=== PATIENT | female | born 1975 | race Caucasian/White ===

== ENCOUNTER → 2016-11-21 21:49 | Emergency (ER) | payer SELFPAY ==
[~2016-11-21 21:49] MED LIST: ACET325T33 PO; CYCL-319 PO; NAPR-260 PO; ZOF8 PO
== END | disposition left against medical advice (07) ==
LOC: E/R 21:49
DX: Z53.21 Procedure and treatment not carried out due to patient leaving prior to being seen by health care provider (principal)

== ENCOUNTER 2016-12-12 15:36 | Emergency (ER) | payer OTHER ==
[~2016-12-12] VITALS: Wt 70.0 kg
[2016-12-12] MEDS ORDERED: ERYTOPOI LEFT EYE (16:01)
[2016-12-12] MEDS ORDERED: BEN25 PO (16:01)
--- NOTE | 2016-12-12 17:20 | ERD ---
ER Documentation Chief Complaint Date/Time DATE: 12/12/16 TIME: 17:15 Chief Complaint LEFT EYELID PAIN AND DRAINAGE SINCE THIS MORNING. HPI 40-year-old female with a past medical history of fatty liver presents to the ED complaining of left eye drainage that started earlier this morning. States that she felt a bump on the left upper eyelid. Reports that it is itchy and red. Reports that she had greenish discharge. States that it is itchy. Denies any photophobia or phonophobia. Denies wearing any glasses or contacts. Denies any eye pain, blurred vision, diplopia, abdominal pain, nausea, vomiting, chest pain, shortness of breath, weakness. ROS All systems reviewed and are negative except as per history of present illness. Medications Home Meds Active Scripts Erythromycin* (Erythromycin* Ophthalmic) 1 Applic Oint, 1 APPLIC LEFT EYE QHS for 7 Days, EA Prov:IAN HERBERT PA-C 12/12/16 Diphenhydramine Hcl* (Benadryl*) 25 Mg Cap, 25 MG PO QHS Y for ITCHING/RASH, # 30 TAB Prov:IAN HERBERT PA-C 12/12/16 Ondansetron Hcl* (Zofran* ODT) 8 mg -ODT Tab.disper, 8 MG PO Q6 Y for NAUSEA AND /OR VOMITING, #10 TAB Prov:AISHA COREA NP 12/05/15 Acetaminophen* (Tylenol*) 325 Mg Tablet, 2 TAB PO Q6 Y for PAIN AND OR ELEVATED TEMP, #20 TAB Prov:AISHA COREA NP 12/05/15 Cyclobenzaprine Hcl* (Cyclobenzaprine Hcl*) 10 Mg Tablet, 10 MG PO TID, #15 TAB Prov:ISABELLA GOOD DO 11/15/15 Naproxen* (Naprosyn*) 500 Mg Tablet, 500 MG PO BID Y for PAIN AND/OR INFLAMMATION, #30 TAB Prov:ISABELLA GOOD DO 11/15/15 Allergies Allergies: Coded Allergies: No Known Allergy (Unverified , 11/15/15) PMhx/Soc History of Surgery: No Anesthesia Reaction: No Hx Neurological Disorder: No Hx Respiratory Disorders: No Hx Cardiac Disorders: No Hx Psychiatric Problems: No Hx Alcohol Use: Yes (EVERYDAY FR XMAS TO 11/11/15) Hx Substance Use: No Hx Tobacco Use: No Physical Exam Vitals Vital Signs Date Time Temp Pulse Resp B/P Pulse Ox O2 Delivery O2 Flow Rate FiO2 12/12/16 15:50 98.8 98 20 120/77 100 Physical Exam Const: [id number]-[id number], well-nourished. In no acute distress. Head: Atraumatic, normocephalic Eyes: Normal Conjunctiva without injection. No purulent discharge. PERRLA. EOMI. Erythematous 1 mm 1 mm circular flesh-like bump noted on the upper right eyelid with slight yellowish green discharge at the inner canthus. No fluctuance or induration. No surrounding edema. ENT: Normal external ear. Ear canal without erythema. Tympanic membrane pearly roy without effusion or bulging. Nasal canal clear with normal turbinates. Moist oropharynx without tonsillar exudates. Non-erythematous pharynx. Uvula midline. No drooling. No trismus. Neck: No cervical midline tenderness. Full range of motion. No meningismus. No cervical lymphadenopathy. No JVD. Resp: Clear to auscultation bilaterally. No wheezing, rhonchi, rales, or crackles. No accessory muscle use. No retractions. Cardio: Regular rate and rhythm. No murmurs, rubs or gallops. Abd: Soft, non tender, non distended. Normal bowel sounds. No palpable masses. No rebound tenderness. No guarding. Negative McBurney's Point. Negative Maurice's Sign. Skin: Normal skin turgor. No petechiae or rashes Back: No midline tenderness. No CVA tenderness. Ext: No cyanosis, or edema. Distal pulses intact bilaterally. Neur: Awake and alert. Normal gait. Normal coordination. Cranial Nerves II- VII intact. Normal finger to nose. Muscle strength 5/5. Sensation intact. Psych: Normal Mood and Affect Procedures/MDM 40-year-old female with no significant past medical history presents the ED complaining of a left eye bump with greenish drainage that occurred this morning. Patient is afebrile and nontoxic-appearing. Patient has normal vital signs. Patient's physical exam is likely consistent with a stye. Patient's ocular symptoms have stabilized while they have been evaluated in the department and are appropriate for outpatient work up. Low suspicion for ruptured globe, retinal detachment, acute angle closure glaucoma, deep space infection, iritis, traumatic hyphema, conjunctivitis, subconjunctival hemorrhage , corneal abrasion, infectious keratitis, corneal ulcer, pterygium, superficial keratitis, hypopyon, blepharitis, episcleritis, chalazion, or other emergent conditions. Discharge medications: Erythromycin ointment at night, Benadryl Follow up with primary care physician in 1-2 days. Instructed patient to return to the ED sooner for any worsening symptoms. Patient's questions were answered. Patient understood and agreed with discharge plan. Patient discharged stable. Departure Diagnosis: Primary Impression: Stye Laterality: left Eyelid: upper Qualified Code: H00.014 - Hordeolum externum of left upper eyelid Condition: Stable Patient Instructions: Dorian Referrals: [facility] YOU HAVE RECEIVED A MEDICAL SCREENING EXAM AND THE RESULTS INDICATE THAT YOU DO NOT HAVE A CONDITION THAT REQUIRES URGENT TREATMENT IN THE EMERGENCY DEPARTMENT. FURTHER EVALUATION AND TREATMENT OF YOUR CONDITION CAN WAIT UNTIL YOU ARE SEEN IN YOUR DOCTORS OFFICE WITHIN THE NEXT 1-2 DAYS. IT IS YOUR RESPONSIBILITY TO MAKE AN APPOINTMENT FOR [facility]. IF YOU HAVE A PRIMARY DOCTOR --you should call your primary doctor and schedule an appointment IF YOU DO NOT HAVE A PRIMARY DOCTOR YOU CAN CALL OUR PHYSICIAN REFERRAL HOTLINE AT IF YOU CAN NOT AFFORD TO SEE A PHYSICIAN YOU CAN CHOSE FROM THE FOLLOWING [facility] [address] [facility]. [facility] [address] [facility]. [facility] [address] [facility] [address] [facility] [address] [facility]. [facility]. [address] [facility] [facility] YOU HAVE RECEIVED A MEDICAL SCREENING EXAM AND THE RESULTS INDICATE THAT YOU DO NOT HAVE A CONDITION THAT REQUIRES URGENT TREATMENT IN THE EMERGENCY DEPARTMENT. FURTHER EVALUATION AND TREATMENT OF YOUR CONDITION CAN WAIT UNTIL YOU ARE SEEN IN YOUR DOCTORS OFFICE WITHIN THE NEXT 1-2 DAYS. IT IS YOUR RESPONSIBILITY TO MAKE AN [facility]. IF YOU HAVE A PRIMARY DOCTOR --you should call your primary doctor and schedule and appointment IF YOU DO NOT HAVE A PRIMARY DOCTOR YOU CAN CALL OUR PHYSICIAN REFERRAL HOTLINE AT . IF YOU CAN NOT AFFORD TO SEE A PHYSICIAN YOU CAN CHOSE FROM THE FOLLOWING [facility] INSTITUTIONS: [facility] [address] [place] [address] [facility] [address] [place] [address] [facility] [address] [place] [address] [facility] Hours: Mon - Fri 9:00 AM - 5:00 PM Additional Instructions: FOLLOW UP WITH YOUR PRIMARY CARE PHYSICIAN TOMORROW.Return to this facility if you are not improving as expected. IAN HERBERT PA-C Dec 12, 2016 17:20
== END 2016-12-12 16:02 | disposition home or self-care (01) ==
LOC: E/R 15:36
DX: H00.014 Hordeolum externum left upper eyelid (principal)
CPT/HCPCS: 99283

== ENCOUNTER 2017-01-14 18:52 | Emergency (ER) | payer OTHER ==
[~2017-01-14] VITALS: Ht 170.2 cm; Wt 69.0 kg
[~2017-01-14 18:52] MED LIST changes: +BEN25 PO; +ERYTOPOI LEFT EYE
[2017-01-14 19:22] VITALS: Ht 170.2 cm; Wt 69.0 kg
--- NOTE | 2017-01-14 21:16 | RADRPT ---
PROCEDURE: XR Left Ankle CLINICAL INDICATION: Pain TECHNIQUE: Standard 3 view radiographs were submitted. COMPARISON: None FINDINGS: Osseous structures: Well mineralized and intact with no fracture or destructive process identified. Joint spaces: Well maintained with no significant erosions or spurring evident. Soft tissues: There is soft tissue swelling about the lateral malleolus suspicious for a sprain. IMPRESSION: Left ankle sprain. Physician Butch Date Time Electronically viewed and signed by Mei Prabhakar Physician on 01/14/2017 21:15 /
--- NOTE | 2017-01-14 21:16 | RADRPT ---
PROCEDURE: XR Left Foot CLINICAL INDICATION: Pain TECHNIQUE: AP, oblique, and lateral radiographs were submitted. COMPARISON: None FINDINGS: Osseous structures: appear well mineralized and intact with no fracture or destructive process iden tified. Joint spaces: are well maintained, with no significant spurring, erosion or joint effusion evident. Soft tissues: appear unremarkable. IMPRESSION: Unremarkable left foot. Physician Butch Date Time Electronically viewed and signed by Mei Prabhakar Physician on 01/14/2017 21:16 /
[2017-01-14] MEDS ORDERED: IBUP-1542 PO (22:07)
[2017-01-14] MEDS ORDERED: HYDR-906 PO (22:12)
--- NOTE | 2017-01-14 22:22 | ERD ---
ER Documentation Chief Complaint Date/Time DATE: 01/14/17 TIME: 22:17 Chief Complaint Left ankle injury. Twisted ankle HPI Patient is a 41-year-old female who presents to the emergency department with left ankle pain status post ankle twist injury. Patient states that she was playing with her son in the grass and while throwing the ball she twisted her left ankle. She states this injury occurred yesterday. Patient states that she has significant swelling and pain to her left ankle. Pain is worse when ablating however the patient is able to bear weight to the affected extremity. Patient is able to walk greater than 4 steps without any difficulty. Patient denies any fever, chills, nausea, vomiting, loss of consciousness. Patient denies any back pain. Patient denies any previous injuries to the affected extremity. Patient states her periods are irregular given that she is on the Implanon ROS All systems reviewed and are negative except as per history of present illness. Medications Home Meds Active Scripts Hydrocodone/Acetaminophen ([place] 5-325 Tablet) 1 Each Tablet, 1 TAB PO Q6H Y for PAIN, #5 TAB Prov:SHIRAZ CRUZ PA-C 01/14/17 Ibuprofen* (Motrin*) 600 Mg Tab, 600 MG PO Q6, #30 TAB Prov:SHIRAZ CRUZ PA-C 01/14/17 Erythromycin* (Erythromycin* Ophthalmic) 1 Applic Oint, 1 APPLIC LEFT EYE QHS for 7 Days, EA Prov:IAN HERBERT PA-C 12/12/16 Diphenhydramine Hcl* (Benadryl*) 25 Mg Cap, 25 MG PO QHS Y for ITCHING/RASH, # 30 TAB Prov:IAN HERBERT PA-C 12/12/16 Ondansetron Hcl* (Zofran* ODT) 8 mg -ODT Tab.disper, 8 MG PO Q6 Y for NAUSEA AND /OR VOMITING, #10 TAB Prov:AISHA COREA NP 12/05/15 Acetaminophen* (Tylenol*) 325 Mg Tablet, 2 TAB PO Q6 Y for PAIN AND OR ELEVATED TEMP, #20 TAB Prov:AISHA COREA NP 12/05/15 Cyclobenzaprine Hcl* (Cyclobenzaprine Hcl*) 10 Mg Tablet, 10 MG PO TID, #15 TAB Prov:ISABELLA GOOD DO 11/15/15 Naproxen* (Naprosyn*) 500 Mg Tablet, 500 MG PO BID Y for PAIN AND/OR INFLAMMATION, #30 TAB Prov:ISABELLA GOOD DO 11/15/15 Allergies Allergies: Coded Allergies: No Known Allergy (Unverified , 11/15/15) PMhx/Soc Medical and Surgical Hx: pt denies Surgical Hx History of Surgery: No Anesthesia Reaction: No Hx Neurological Disorder: No Hx Respiratory Disorders: No Hx Cardiac Disorders: No Hx Psychiatric Problems: No Hx Alcohol Use: Yes (EVERYDAY FR XMAS TO 11/11/15) Hx Substance Use: No Hx Tobacco Use: No Smoking Status: Never smoker FmHx Family History: No diabetes Physical Exam Vitals Vital Signs Date Time Temp Pulse Resp B/P Pulse Ox O2 Delivery O2 Flow Rate FiO2 01/14/17 19:22 98.7 92 18 141/84 97 Physical Exam GENERAL: Well-developed, well-nourished female. Appears in no acute distress. HEAD: Normocephalic, atraumatic. EYES: Pupils are equally reactive bilaterally. EOMs grossly intact. No conjunctival erythema. ENT: Moist mucous membranes. No uvula deviation. No kissing tonsils. NECK: Supple. No meningismus. Normal range of motion of the neck. LUNG: Clear to auscultation bilaterally. No rhonchi, wheezing, rales or coarse breath sounds. HEART: Regular rate and rhythm. No murmurs, rubs or gallops. EXTREMITIES: Equal pulses bilaterally. No peripheral clubbing, cyanosis or edema. No unilateral leg swelling. NEUROLOGIC: Alert and oriented. Moving all four extremities without any difficulty. Normal speech. Steady gait. SKIN: Normal color. Warm and dry. No rashes or lesions. LEFT ANKLE: No obvious deformity. Positive swelling and ecchymosis noted to the lateral aspect of the ankle. Skin intact. Crease range of motion secondary to swelling and pain. Nontender to palpation of the tib-fib, knee. Tender to palpation of the lateral ankle and midfoot. No joint line tenderness. Sensation intact to light touch. Neurovascularly intact. (Able to plantarflex, dorsiflex, karla foot, invert foot, raise big toe.) 2+ DP and DT pulses. Procedures/MDM ED COURSE: The patient was stable throughout ED course. I kept the patient and/or family informed of laboratory and diagnostic imaging results throughout the ED course. DIAGNOSTIC IMAGING: Read by radiologist. DIAGNOSTIC IMAGING REPORT Patient: EROS OTERO : 1975 Age: 41 Sex: F MR #: [id number] DOS: 01/14/172028 Ordering MD: SHIRAZ CRUZ PA-C Location: [facility] Room/Bed: PROCEDURE: XR Left Foot CLINICAL INDICATION: Pain TECHNIQUE: AP, oblique, and lateral radiographs were submitted. COMPARISON: None FINDINGS: Osseous structures: appear well mineralized and intact with no fracture or destructive process identified. Joint spaces: are well maintained, with no significant spurring, erosion or joint effusion evident. Soft tissues: appear unremarkable. IMPRESSION: Unremarkable left foot. Physician Butch Date Time Electronically viewed and signed by Physician Butch on 01/14/2017 21:16 RH/ CC: SHIRAZ CRUZ PA-C DIAGNOSTIC IMAGING REPORT Patient: EORS OTERO : 1975 Age: 41 Sex: F MR #: [id number] DOS: 01/14/172028 Ordering MD: SHIRAZ CRUZ PA-C Location: [facility] Room/Bed: PROCEDURE: XR Left Ankle CLINICAL INDICATION: Pain TECHNIQUE: Standard 3 view radiographs were submitted. COMPARISON: None FINDINGS: Osseous structures: Well mineralized and intact with no fracture or destructive process identified. Joint spaces: Well maintained with no significant erosions or spurring evident. Soft tissues: There is soft tissue swelling about the lateral malleolus suspicious for a sprain. IMPRESSION: Left ankle sprain. Physician Butch Date Time Electronically viewed and signed by Physician Butch on 01/14/2017 21:15 RH/ CC: SHIRAZ CRUZ PA-C PROCEDURES: SPLINT APPLICATION: The patient was verbally consented at bedside prior to splint application. Patient was explained the risks, benefits and alternatives to this procedure. The patient was neurovascularly intact prior to and status post application of the splint. The patient tolerated the procedure well with no complications. Splint type: Mesfin wrap Extremity: Left ankle Indication: Left ankle sprain MEDICAL DECISION MAKING: This is a 41-year-old female who presents with left ankle pain after twisting her ankle. Vital signs were reviewed. Patient was afebrile. Xrays showed left ankle sprain. Given these findings, the patients presentation is most consistent with left ankle sprain. I have a much lower clinical concern for ankle dislocation, ankle fracture, tibia fracture, fibula fracture, tibial plateau fracture, Maisonneuve fracture, foot fracture, osteomyelitis, septic joint, DVT, compartment syndrome. At this time, unable to rule out any tendon and ligament injuries. She was placed in an Mesfin wrap. PRESCRIPTIONS: Ibuprofen, [place] DISCHARGE: At this time, patient is stable for discharge and outpatient management. RICE therapy and ROM exercises were advised to avoid stiffness. I have instructed the patient to follow-up with his/her primary care physician in 1-2 days. I have discussed with the patient the possibility of needing to see an improvement specialist for further workup and imaging if the pain persists. I have instructed the patient to promptly return to the ER for any new or worsening symptoms including increased pain, swelling, redness, warmth or fever. The patient and/or family expressed understanding of and agreement with this plan. All questions were answered. Home care instructions were provided. Departure Diagnosis: Primary Impression: Ankle sprain Encounter type: initial encounter Involved ligament of ankle: unspecified ligament Laterality: left Qualified Code: S93.402A - Sprain of left ankle, unspecified ligament, initial encounter Condition: Stable Patient Instructions: Self-Care for Strains and Sprains Referrals: COMMUNITY CLINICS YOU HAVE RECEIVED A MEDICAL SCREENING EXAM AND THE RESULTS INDICATE THAT YOU DO NOT HAVE A CONDITION THAT REQUIRES URGENT TREATMENT IN THE EMERGENCY DEPARTMENT. FURTHER EVALUATION AND TREATMENT OF YOUR CONDITION CAN WAIT UNTIL YOU ARE SEEN IN YOUR DOCTORS OFFICE WITHIN THE NEXT 1-2 DAYS. IT IS YOUR RESPONSIBILITY TO MAKE AN APPOINTMENT FOR [facility]OLOW-UP CARE. IF YOU HAVE A PRIMARY DOCTOR --you should call your primary doctor and schedule an appointment IF YOU DO NOT HAVE A PRIMARY DOCTOR YOU CAN CALL OUR PHYSICIAN REFERRAL HOTLINE AT IF YOU CAN NOT AFFORD TO SEE A PHYSICIAN YOU CAN CHOSE FROM THE FOLLOWING [facility] [address] [facility] [address] [facility] [address] [facility] [address] [facility] [address] [facility]. [facility] [address] [facility]. [facility] YOU HAVE RECEIVED A MEDICAL SCREENING EXAM AND THE RESULTS INDICATE THAT YOU DO NOT HAVE A CONDITION THAT REQUIRES URGENT TREATMENT IN THE EMERGENCY DEPARTMENT. FURTHER EVALUATION AND TREATMENT OF YOUR CONDITION CAN WAIT UNTIL YOU ARE SEEN IN YOUR DOCTORS OFFICE WITHIN THE NEXT 1-2 DAYS. IT IS YOUR RESPONSIBILITY TO MAKE AN APPOINTMENT FOR FOLOW-UP CARE. IF YOU HAVE A PRIMARY DOCTOR --you should call your primary doctor and schedule and appointment IF YOU DO NOT HAVE A PRIMARY DOCTOR YOU CAN CALL OUR PHYSICIAN REFERRAL HOTLINE AT . IF YOU CAN NOT AFFORD TO SEE A PHYSICIAN YOU CAN CHOSE FROM THE FOLLOWING [facility]: [facility] [address] [place] [address] [facility] [address] [place] [address] [facility] [address] [place] [address] Additional Instructions: Able to rule out any ligament or tendon injuries at this time. Patient was advised to follow-up with an improvement specialist and/or obtain MRI imaging of the pain persist. She will be placed in a Mesfin wrap for comfort. Patient given copy of all imaging studies obtained today. Call your primary care doctor TOMORROW for an appointment during the next 1-2 days.See the doctor sooner or return here if your condition worsens before your appointment time. SHIRAZ CRUZ PA-C Jan 14, 2017:22
== END 2017-01-14 22:24 | disposition home or self-care (01) ==
LOC: FTE 18:52
DX: S93.402A Sprain of unspecified ligament of left ankle, initial encounter (principal); X50.1XXA Overexertion from prolonged static or awkward postures, initial encounter; Y92.9 Unspecified place or not applicable
CPT/HCPCS: 73610

== ENCOUNTER 2017-04-19 15:42 | Emergency (ER) | payer OTHER ==
[~2017-04-19] VITALS: Ht 170.2 cm; Wt 72.0 kg
[~2017-04-19 15:42] MED LIST changes: +HYDR-906 PO; +IBUP-1542 PO
[2017-04-19 15:44] VITALS: Ht 170.2 cm; Wt 72.0 kg
[2017-04-19] MEDS ORDERED: ERYTOPOI RIGHT EYE (15:51)
[2017-04-19] MEDS ORDERED: IBUP-1542 PO (15:51)
--- NOTE | 2017-04-19 15:55 | ERD ---
ER Documentation Chief Complaint Date/Time DATE: 04/19/17 TIME: 15:53 Chief Complaint rt eye pain , sore throat HPI Patient is a 41-year-old female presents to the emergency department for right eye pain and sore throat. Patient's right eye pain started 2 days ago. Patient reports of a red bump to the lower eyelid of her right eye. Patient denies any foreign bodies. Patient does not wear contact lens. Patient denies any blurry vision or eye discharge. Patient denies any fevers or chills. Patient also complaining of throat pain after having oral sex. Patient states "did something with a shahrzad and I am worried that I have syphilis". Patient did see her primary care physician yesterday and states that her blood work is pending. Patient denies any drooling, trismus or hyperextension of her neck. Patient denies any rhinorrhea, cough, ear pain, abdominal pain, nausea, vomiting. ROS All systems reviewed and are negative except as per history of present illness. Medications Home Meds Active Scripts Erythromycin* (Erythromycin* Ophthalmic) 1 Applic Oint, 1 APPLIC RIGHT EYE QID for 7 Days Prov:SHIRAZ CRUZ-C 04/19/17 Ibuprofen* (Motrin*) 600 Mg Tab, 600 MG PO Q6, #30 TAB Prov:SHIRAZ CRUZ-C 04/19/17 Hydrocodone/Acetaminophen ([place] 5-325 Tablet) 1 Each Tablet, 1 TAB PO Q6H Y for PAIN, #5 TAB Prov:SHIRAZ CRUZ-C 01/14/17 Ibuprofen* (Motrin*) 600 Mg Tab, 600 MG PO Q6, #30 TAB Prov:SHIRAZ CRUZ-C 01/14/17 Erythromycin* (Erythromycin* Ophthalmic) 1 Applic Oint, 1 APPLIC LEFT EYE QHS for 7 Days, EA Prov:IAN HERBERT PA-C 12/12/16 Diphenhydramine Hcl* (Benadryl*) 25 Mg Cap, 25 MG PO QHS Y for ITCHING/RASH, # 30 TAB Prov:IAN HERBERT PA-C 12/12/16 Ondansetron Hcl* (Zofran* ODT) 8 mg -ODT Tab.disper, 8 MG PO Q6 Y for NAUSEA AND /OR VOMITING, #10 TAB Prov:AISHA COREA PATENTS EXAMINER 12/05/15 Acetaminophen* (Tylenol*) 325 Mg Tablet, 2 TAB PO Q6 Y for PAIN AND OR ELEVATED TEMP, #20 TAB Prov:AISHA COREA PATENTS EXAMINER 12/05/15 Cyclobenzaprine Hcl* (Cyclobenzaprine Hcl*) 10 Mg Tablet, 10 MG PO TID, #15 TAB Prov:ISABELLA GOOD DO 11/15/15 Naproxen* (Naprosyn*) 500 Mg Tablet, 500 MG PO BID Y for PAIN AND/OR INFLAMMATION, #30 TAB Prov:ISABELLA GOOD DO 11/15/15 Allergies Allergies: Coded Allergies: No Known Allergy (Unverified , 11/15/15) PMhx/Soc History of Surgery: No Anesthesia Reaction: No Hx Neurological Disorder: No Hx Respiratory Disorders: No Hx Cardiac Disorders: No Hx Psychiatric Problems: No Hx Alcohol Use: Yes (EVERYDAY FR XMAS TO 11/11/15) Hx Substance Use: No Hx Tobacco Use: No FmHx Family History: No diabetes Physical Exam Vitals Vital Signs Date Time Temp Pulse Resp B/P Pulse Ox O2 Delivery O2 Flow Rate FiO2 04/19/17 15:44 98.1 84 18 134/84 98 Physical Exam GENERAL: Well-developed, well-nourished female. Appears in no acute distress. Speaking in full sentences. HEAD: Normocephalic, atraumatic. No deformities or ecchymosis. EYE: Pupils equal, round, and reactive to light. EOMs intact. No conjunctival erythema. No eye discharge. Erythematous stye noted on the patient's right lower eyelid. ENT: External ear without any masses or tenderness. Oropharynx is pink without any tonsillar erythema or exudates. No uvula deviation. No kissing tonsils. No ulcerations noted. No vesicles noted. No trismus. No drooling. NECK: Supple. No meningismus. Normal ROM of the neck. LUNG: Clear to auscultation bilaterally. No rhonchi, wheezing, rales or coarse breath sounds. HEART: Regular rate and rhythm. No murmurs, rubs or gallops. BACK: No midline tenderness. EXTREMITIES: Equal pulses bilaterally. No peripheral clubbing, cyanosis or edema. No unilateral leg swelling. NEUROLOGIC: Alert and oriented to person, place and time. Moving all four extremities. 5/5 strength in all extremities. Normal speech. Steady gait. SKIN: Normal color. Warm and dry. No rashes or lesions. Procedures/MDM MEDICAL DECISION MAKING: This is a 41-year-old female presents with right eye pain and throat pain 2 days. Vital signs were reviewed. Patient was afebrile. Eye exam revealed findings consistent with a stye to the patient's right lower eyelid. ENT exam was unremarkable. Given these findings, the patient's presentation is most consistent with stye and throat pain. I have a much lower clinical concern for bacterial conjunctivitis, viral conjunctivitis, allergic conjunctivitis, retained eye foreign body, periorbital cellulitis, orbital cellulitis, dacrocystitis. Low suspicion for strep pharyngitis, peritonsillar abscess, Aplhonso's angina, retropharyngeal abscess, dental caries. I explained to the patient that I am unable to rule out any STDs or syphilis at this time. Patient should await her results from her primary care physician. PRESCRIPTIONS: Erythromycin ointment, ibuprofen. DISCHARGE: At this time, patient is stable for discharge and outpatient management. Patient advised to follow-up with her primary care physician for concerns of STDs versus syphilis. Supportive measures were discussed with patient including warm compresses. Patient advised not to wear contact lenses or eye makeup. I have instructed the patient to follow-up with his/her primary care physician in 1-2 days. I have discussed with the patient the possibility of needing to see an weight reduction specialist for further workup if symptoms persist. I have instructed the patient to promptly return to the ER for any new or worsening symptoms including increased pain, fever, swelling, redness, warmth, nausea, vomiting, . The patient and/or family expressed understanding of and agreement with this plan. All questions were answered. Home care instructions were provided. Departure Diagnosis: Primary Impression: Stye Laterality: right Eyelid: lower Qualified Code: H00.012 - Hordeolum externum of right lower eyelid Additional Impression: Sore throat Condition: Stable Patient Instructions: When You Have a Sore Throat Referrals: [facility] Hours: Mon - Fri 9:00 AM - 5:00 PM Additional Instructions: Call your primary care doctor TOMORROW for an appointment during the next 1-2 days.See the doctor sooner or return here if your condition worsens before your appointment time. Unable to rule out STDs/syphilis. Follow up with your PCP. Warm compresses to eye. SHIRAZ CRUZ PA-C Apr 19, 2017 15:55
== END 2017-04-19 16:00 | disposition home or self-care (01) ==
LOC: FTE 15:42 → E/R 16:00
DX: H00.012 Hordeolum externum right lower eyelid (principal); J02.9 Acute pharyngitis, unspecified
CPT/HCPCS: 99283

== ENCOUNTER 2017-04-23 14:56 | Emergency (ER) | payer OTHER ==
[~2017-04-23] VITALS: Ht 170.2 cm; Wt 70.0 kg
[~2017-04-23 14:56] MED LIST changes: +ERYTOPOI RIGHT EYE
[2017-04-23 15:00] VITALS: Ht 170.2 cm; Wt 70.0 kg
[2017-04-23] MEDS ORDERED: AZIT250T94 PO (15:07)
[2017-04-23] MEDS ORDERED: IBUP-1542 PO (15:07)
[2017-04-23] MEDS ORDERED: CETI10CA PO (15:07)
--- NOTE | 2017-04-23 15:11 | ERD ---
ER Documentation Chief Complaint Date/Time DATE: 04/23/17 TIME: 15:10 Chief Complaint sore throat, cough, bilat ear pain x 1 week HPI 41-year-old female comes with sore throat, cough 1 week. She states that she has had a dry cough, soreness in both of her jaws, no drainage from the ears. She has been diagnosed with a stye under the right eye and has been doing erythromycin ointment and compresses states that the swelling is better. No visual deficits. Denies hemoptysis, recent travel. ROS All systems reviewed and are negative except as per history of present illness. Medications Home Meds Active Scripts Ibuprofen* (Motrin*) 600 Mg Tab, 600 MG PO Q6, #30 TAB Prov:ASHANTI BARRON PA-C 04/23/17 Cetirizine Hcl* (Zyrtec*) 10 Mg Capsule, 10 MG PO DAILY, #10 TAB.CHEW Prov:ASHANTI BARRON PA-C 04/23/17 Azithromycin* (Zithromax*) 250 Mg Tablet, 250 MG PO .ZPACK DIRECTED, #6 TAB TAKE 500 MG (2 TABS) THE FIRST DAY THEN 250 MG (1 TAB) DAYS 2-5 Prov:ASHANTI BARRON PA-C 04/23/17 Erythromycin* (Erythromycin* Ophthalmic) 1 Applic Oint, 1 APPLIC RIGHT EYE QID for 7 Days Prov:SHIRAZ CRUZ PA-C 04/19/17 Ibuprofen* (Motrin*) 600 Mg Tab, 600 MG PO Q6, #30 TAB Prov:SHIRAZ CRUZ PA-C 04/19/17 Hydrocodone/Acetaminophen ([place] 5-325 Tablet) 1 Each Tablet, 1 TAB PO Q6H Y for PAIN, #5 TAB Prov:SHIRAZ CRUZ PA-C 01/14/17 Ibuprofen* (Motrin*) 600 Mg Tab, 600 MG PO Q6, #30 TAB Prov:SHIRAZ CRUZ PA-C 01/14/17 Erythromycin* (Erythromycin* Ophthalmic) 1 Applic Oint, 1 APPLIC LEFT EYE QHS for 7 Days, EA Prov:IAN HERBERT PA-C 12/12/16 Diphenhydramine Hcl* (Benadryl*) 25 Mg Cap, 25 MG PO QHS Y for ITCHING/RASH, # 30 TAB Prov:IAN HERBERT PA-C 12/12/16 Ondansetron Hcl* (Zofran* ODT) 8 mg -ODT Tab.disper, 8 MG PO Q6 Y for NAUSEA AND /OR VOMITING, #10 TAB Prov:AISHA COREACortes INTERVENTIONAL PHYSIATRIST 12/05/15 Acetaminophen* (Tylenol*) 325 Mg Tablet, 2 TAB PO Q6 Y for PAIN AND OR ELEVATED TEMP, #20 TAB Prov:AISHA COREACortes INTERVENTIONAL PHYSIATRIST 12/05/15 Cyclobenzaprine Hcl* (Cyclobenzaprine Hcl*) 10 Mg Tablet, 10 MG PO TID, #15 TAB Prov:[place]OR[place]ISABELLA DO 11/15/15 Naproxen* (Naprosyn*) 500 Mg Tablet, 500 MG PO BID Y for PAIN AND/OR INFLAMMATION, #30 TAB Prov:ISABELLA GOOD DO 11/15/15 Allergies Allergies: Coded Allergies: No Known Allergy (Unverified , 11/15/15) PMhx/Soc History of Surgery: Yes (Tonsillectomy) Anesthesia Reaction: No Hx Neurological Disorder: No Hx Respiratory Disorders: No Hx Cardiac Disorders: No Hx Psychiatric Problems: No Hx Alcohol Use: Yes (EVERYDAY FR XMAS TO 11/11/15) Hx Substance Use: No Hx Tobacco Use: No Physical Exam Vitals Vital Signs Date Time Temp Pulse Resp B/P Pulse Ox O2 Delivery O2 Flow Rate FiO2 04/23/17 15:00 97.6 85 18 128/81 96 Physical Exam General: Well-developed, well-nourished. The patient appears in no acute distress. HEENT: Head is normocephalic, atraumatic. No scleral icterus. Pupils are equal , round, and reactive. Oral mucous membranes are moist. No pharyngeal erythema. Neck: Supple. Nontender. Lungs: Clear to auscultation. Normal air movement. Heart: Regular rate and rhythm. S1 and S2 are normal. No murmurs, gallops, or rubs. Abdomen: Nondistended Extremities: No clubbing or cyanosis. Normal pulses. Moving extremities x 4. No weakness. Neurologic: Alert and oriented 3. No focal deficits. Skin: Normal turgor. No rash or lesions. Procedures/MDM The patient is a 41-year-old who comes in with an acute upper respiratory infection, versus acute bronchitis the patient has a differential diagnosis of a viral upper respiratory infection, bacterial upper respiratory infection, bronchitis, pneumonia, pharyngitis, laryngitis, epiglottitis, croup, pneumonia. Patient has a normal pulmonary examination, clear breath sounds, normal pulse oximetry, with no corrective measures needed at this time. Fluids, rest, antipyretics were encouraged. Departure Diagnosis: Primary Impression: Cough Patient Instructions: Bronchitis, Antiobiotic Treatment (Adult) Additional Instructions: Call your primary care doctor TOMORROW for an appointment during the next 1-2 days.See the doctor sooner or return here if your condition worsens before your appointment time. ASHANTI BARRON PA-C Apr 23, 2017 15:11
== END 2017-04-23 15:10 | disposition home or self-care (01) ==
LOC: E/R 14:56
DX: R05 Cough (principal)
CPT/HCPCS: 99283

== ENCOUNTER 2017-08-01 01:31 | Emergency (ER) | payer OTHER ==
[~2017-08-01] VITALS: Ht 170.2 cm; Wt 69.0 kg
[~2017-08-01 01:31] MED LIST changes: +AZIT250T94 PO; +CETI10CA PO
[2017-08-01 01:34] VITALS: Ht 170.2 cm; Wt 69.0 kg
--- NOTE | 2017-08-01 02:53 | ERA ---
ER Documentation Chief Complaint Date/Time DATE: 08/01/17 TIME: 02:51 Chief Complaint C/O vaginal pain with bleeding x 2 days HPI Otherwise healthy 41-year-old female with a chief complaint of anal pain. Patient had anal sex. Patient states that the sex with this partner has been consensual. States that she is having pain now wants pain medications. No other complaints and describes no other associated manifestations. Denies wanting to hurt herself or others. Nursing notes have been reviewed and are consistent with history given. I have reiterated the history with the patient which she has agreed that the aforementioned history is correct. ROS All systems reviewed and are negative except as per history of present illness. Medications Home Meds Active Scripts Ibuprofen* (Motrin*) 600 Mg Tab, 600 MG PO Q6, #30 TAB Prov:ASHANTI BARRON PA-C 04/23/17 Cetirizine Hcl* (Zyrtec*) 10 Mg Capsule, 10 MG PO DAILY, #10 TAB.CHEW Prov:ASHANTI BARRON PA-C 04/23/17 Azithromycin* (Zithromax*) 250 Mg Tablet, 250 MG PO .ZPACK DIRECTED, #6 TAB TAKE 500 MG (2 TABS) THE FIRST DAY THEN 250 MG (1 TAB) DAYS 2-5 Prov:ASHANTI BARRON PA-C 04/23/17 Erythromycin* (Erythromycin* Ophthalmic) 1 Applic Oint, 1 APPLIC RIGHT EYE QID for 7 Days Prov:SHIRAZ CRUZ PA-C 04/19/17 Ibuprofen* (Motrin*) 600 Mg Tab, 600 MG PO Q6, #30 TAB Prov:SHIRAZ CRUZ PA-C 04/19/17 Hydrocodone/Acetaminophen ([place] 5-325 Tablet) 1 Each Tablet, 1 TAB PO Q6H Y for PAIN, #5 TAB Prov:SHIRAZ CRUZ PA-C 01/14/17 Ibuprofen* (Motrin*) 600 Mg Tab, 600 MG PO Q6, #30 TAB Prov:SHIRAZ CRUZ PA-C 01/14/17 Erythromycin* (Erythromycin* Ophthalmic) 1 Applic Oint, 1 APPLIC LEFT EYE QHS for 7 Days, EA Prov:IAN HERBERT PA-C 12/12/16 Diphenhydramine Hcl* (Benadryl*) 25 Mg Cap, 25 MG PO QHS Y for ITCHING/RASH, # 30 TAB Prov:IAN HERBERT PA-C 12/12/16 Ondansetron Hcl* (Zofran* ODT) 8 mg -ODT Tab.disper, 8 MG PO Q6 Y for NAUSEA AND /OR VOMITING, #10 TAB Prov:AISHA COREACortes PRIMARY CARE PEDIATRICIAN 12/05/15 Acetaminophen* (Tylenol*) 325 Mg Tablet, 2 TAB PO Q6 Y for PAIN AND OR ELEVATED TEMP, #20 TAB Prov:AISHA COREACortes PRIMARY CARE PEDIATRICIAN 12/05/15 Cyclobenzaprine Hcl* (Cyclobenzaprine Hcl*) 10 Mg Tablet, 10 MG PO TID, #15 TAB Prov:ISABELLA GOOD DO 11/15/15 Naproxen* (Naprosyn*) 500 Mg Tablet, 500 MG PO BID Y for PAIN AND/OR INFLAMMATION, #30 TAB Prov:ISABELLA GOOD DO 11/15/15 Allergies Allergies: Coded Allergies: No Known Allergy (Unverified , 11/15/15) PMhx/Soc History of Surgery: Yes (Tonsillectomy) Anesthesia Reaction: No Hx Neurological Disorder: No Hx Respiratory Disorders: No Hx Cardiac Disorders: No Hx Psychiatric Problems: No Hx Miscellaneous Medical Probl: Yes (FATTY LIVER) Hx Alcohol Use: Yes (EVERYDAY FR XMAS TO 11/11/15) Hx Substance Use: No Hx Tobacco Use: No Smoking Status: Never smoker Physical Exam Vitals Vital Signs Date Time Temp Pulse Resp B/P Pulse Ox O2 Delivery O2 Flow Rate FiO2 08/01/17 01:34 98.6 95 18 166/79 99 Physical Exam Const: Well-appearing in no acute distress Head: Atraumatic Eyes: Normal Conjunctiva ENT: Normal External Ears, Nose and Mouth. Neck: Full range of motion..~ No meningismus. Resp: Clear to auscultation bilaterally Cardio: Regular rate and rhythm, no murmurs Abd: Soft, non tender, non distended. Normal bowel sounds Skin: No petechiae or rashes Back: No midline or flank tenderness Ext: No cyanosis, or edema Neur: Awake and alert Psych: Normal Mood and Affect Results 24 hrs Current Medications Medications (Trade) Dose Ordered Sig/Eva Route PRN Reason Start Time Stop Time Status Last Admin Dose Admin Acetaminophen/ Hydrocodone Bitart ([place] (5/325)) 1 tab ONCE ONCE PO 08/01/17 03:00 08/01/17 03:01 Procedures/MDM 41-year-old female with a chief complaint of rectal pain and is status post rectal intercourse. Denies vaginal bleeding, rectal bleeding or discharge. Patient was given one Babcock in the ED. Patient will be sent home without pain medication with recommendation to have ibuprofen or Tylenol [id number]. Of little suspicion for perforation, bleed, or other acute pathologies. Vitals are stable and patient's current condition is appropriate for discharge.. Departure Diagnosis: Primary Impression: Rectal or anal pain Condition: Stable Patient Instructions: What Are Sexually Transmitted Diseases (STDs)? Additional Instructions: Follow up with your PCP within the next 1-3 days for a more thorough evaluation and a possible referral to a specialist. Return the the emergency department immediately if symptoms worsen or change. If you have any questions regarding medications, ask your pharmacist or us before you leave. If any adverse reactions occur while taking your medications, discontinue the treatment and return to the emergency department immediately. Take your medications as directed, and complete the entire course of treatment. JAZZMINE VALERIO PA-C Aug 01, 2017 02:53
[2017-08-01] MEDS ORDERED: HYDROCODONE/APAP (5/325) TAB PO ONE (03:00)
[2017-08-01 03:27] VITALS: BP 111/79; PULSE 89; RESP 18
== END 2017-08-01 03:29 | disposition home or self-care (01) ==
LOC: FTE 01:31
DX: K62.89 Other specified diseases of anus and rectum (principal)
CPT/HCPCS: 99283

== ENCOUNTER 2017-09-23 20:58 | Emergency (ER) | payer OTHER ==
[~2017-09-23] VITALS: Ht 172.7 cm; Wt 69.5 kg
[2017-09-23 21:11] VITALS: Ht 172.7 cm; Wt 69.5 kg
--- NOTE | 2017-09-23 23:47 | RADRPT ---
PROCEDURE: XR Ankle. CLINICAL INDICATION: Ankle pain. TECHNIQUE: AP, lateral and oblique views of the left ankle were performed. COMPARISON: 01/14/2017 FINDINGS: There is normal bone mineralization.There is no acute fracture or dislocation.The ankle mortise is i ntact.No osseous lesion is identified.There is no soft tissue swelling. IMPRESSION: No acute fracture or dislocation. RPTAT: HIKT .Tian Nicole MD, MD Date Time Electronically viewed and signed by .Tian Nicole MD, MD on 09/23/2017 23:46 .T/
--- NOTE | 2017-09-23 23:53 | RADRPT ---
PROCEDURE: CT Brain without contrast. CLINICAL INDICATION: Fall. Headache. TECHNIQUE: A multiplanar CT of the brain was performed on a CT scanner utilizing axial imaging fro m the skull base through the vertex without IV contrast. The CTDIvol is 45.01 mGy and the DLP is 72 0.23 mGycm. One or more of the following dose reduction techniques were utilized: Automated exposu re control, adjustment of the mA and/or kV according to patient size, use of iterative reconstructio n technique. COMPARISON: None FINDINGS: No evidence of intracranial hemorrhage or abnormal extra-axial fluid collection. The brain parenchyma is normal attenuation morphology with preservation of roy white differentiatio n and age appropriate size of the ventricles and subarachnoid spaces. The basal cisterns, posterior fossa contents, brainstem, craniocervical junction, orbits, pituitary axis, paranasal sinuses, mastoid air cells, and calvarium are unremarkable. IMPRESSION: 1. No intracranial hemorrhage or acute intracranial abnormality. RPTAT:AAJJ Physician Tello Date Time Electronically viewed and signed by Physician Tello on 09/23/2017 23:53 NATE/
--- NOTE | 2017-09-24 00:13 | ERD ---
ER Documentation Chief Complaint Chief Complaint ETOH WITH FALL EARLIER TODAY, LEFT ANKLE INJURY HPI 41-year-old female who does drink alcohol and fall earlier today. With the left ankle pain. Denies any head trauma. Denies any loss conscious. Denies any other current complaints. ROS All systems reviewed and are negative except as per history of present illness. Medications Home Meds Active Scripts Ibuprofen* (Motrin*) 600 Mg Tab, 600 MG PO Q6, #30 TAB Prov:ASHANTI BARRON PA-C 04/23/17 Cetirizine Hcl* (Zyrtec*) 10 Mg Capsule, 10 MG PO DAILY, #10 TAB.CHEW Prov:ASHANTI BARRON PA-C 04/23/17 Azithromycin* (Zithromax*) 250 Mg Tablet, 250 MG PO .ZPACK DIRECTED, #6 TAB TAKE 500 MG (2 TABS) THE FIRST DAY THEN 250 MG (1 TAB) DAYS 2-5 Prov:ASHANTI BARRON PA-C 04/23/17 Erythromycin* (Erythromycin* Ophthalmic) 1 Applic Oint, 1 APPLIC RIGHT EYE QID for 7 Days Prov:SHIRAZ CRUZ PA-C 04/19/17 Ibuprofen* (Motrin*) 600 Mg Tab, 600 MG PO Q6, #30 TAB Prov:SHIRAZ CRUZ PA-C 04/19/17 Hydrocodone/Acetaminophen ([place] 5-325 Tablet) 1 Each Tablet, 1 TAB PO Q6H Y for PAIN, #5 TAB Prov:SHIRAZ CRUZ PA-C 01/14/17 Ibuprofen* (Motrin*) 600 Mg Tab, 600 MG PO Q6, #30 TAB Prov:SHIRAZ CRUZ PA-C 01/14/17 Erythromycin* (Erythromycin* Ophthalmic) 1 Applic Oint, 1 APPLIC LEFT EYE QHS for 7 Days, EA Prov:IAN HERBERT PA-C 12/12/16 Diphenhydramine Hcl* (Benadryl*) 25 Mg Cap, 25 MG PO QHS Y for ITCHING/RASH, # 30 TAB Prov:IAN HERBERT PA-C 12/12/16 Ondansetron Hcl* (Zofran* ODT) 8 mg -ODT Tab.disper, 8 MG PO Q6 Y for NAUSEA AND /OR VOMITING, #10 TAB Prov:AISHA COREA NP 12/05/15 Acetaminophen* (Tylenol*) 325 Mg Tablet, 2 TAB PO Q6 Y for PAIN AND OR ELEVATED TEMP, #20 TAB Prov:AISHA COREA PSYCHOMETRIC EXAMINER 12/05/15 Cyclobenzaprine Hcl* (Cyclobenzaprine Hcl*) 10 Mg Tablet, 10 MG PO TID, #15 TAB Prov:ISABELLA GOOD DO 11/15/15 Naproxen* (Naprosyn*) 500 Mg Tablet, 500 MG PO BID Y for PAIN AND/OR INFLAMMATION, #30 TAB Prov:ISABELLA GOOD DO 11/15/15 Allergies Allergies: Coded Allergies: No Known Allergy (Unverified , 09/23/17) PMhx/Soc History of Surgery: Yes (Tonsillectomy) Anesthesia Reaction: No Hx Neurological Disorder: No Hx Respiratory Disorders: No Hx Cardiac Disorders: No Hx Psychiatric Problems: No Hx Miscellaneous Medical Probl: Yes (FATTY LIVER) Hx Alcohol Use: Yes (EVERYDAY FR XMAS TO 11/11/15) Hx Substance Use: No Hx Tobacco Use: No Smoking Status: Never smoker Physical Exam Vitals Vital Signs Date Time Temp Pulse Resp B/P Pulse Ox O2 Delivery O2 Flow Rate FiO2 09/23/17 21:11 97.4 81 18 135/91 98 Physical Exam Const: [] Head: Atraumatic Eyes: Normal Conjunctiva ENT: Normal External Ears, Nose and Mouth. Neck: Full range of motion..~ No meningismus. Resp: Clear to auscultation bilaterally Cardio: Regular rate and rhythm, no murmurs Abd: Soft, non tender, non distended. Normal bowel sounds Skin: No petechiae or rashes Back: No midline or flank tenderness Ext: No cyanosis, or edema Neur: Awake and alert Psych: Normal Mood and Affect Procedures/MDM X-ray Ankle 3V Interpreted by me: Bones: [No fracture] Joints: No dislocation Medical decision-makin-year-old female mechanical fall. Ankle x-rays negative. Ambulatory. Stable for outpatient management. Advised stop drinking. ANO 4 with goal oriented speech and good decision-making capacity. Departure Diagnosis: Primary Impression: Alcoholic intoxication Complication of substance-induced condition: uncomplicated Qualified Code: F10.920 - Alcoholic intoxication without complication Condition: Stable Patient Instructions: Alcohol Intoxication SHIRLEY PIZARRO Sep 24, 2017 00:13
[2017-09-24 01:16] VITALS: BP 117/69; PULSE 67; RESP 18; TEMP 98.3
== END 2017-09-24 01:18 | disposition home or self-care (01) ==
LOC: E/R 20:58
DX: F10.920 Alcohol use, unspecified with intoxication, uncomplicated (principal); R93.0 Abnormal findings on diagnostic imaging of skull and head, not elsewhere classified; W18.39XA Other fall on same level, initial encounter; Y92.9 Unspecified place or not applicable
CPT/HCPCS: 70450; 73610